=== PATIENT | female | born 1960 | race Caucasian/White ===

== ENCOUNTER 2021-12-22 12:05 | Emergency (ER) | payer MEDICARE, SELFPAY ==
[2021-12-22] VITALS (21 sets, daily range): BP systolic 129–158; BP diastolic 68–91; PULSE 68–87; RESP 16–52; TEMP 37; O2SAT 97–99
--- NOTE | 2021-12-22 12:04 | DI.CT.S_ITS ---
PROCEDURE: CT STROKE INDICATIONS: stroke symptoms TECHNIQUE: Noncontrast 4.5 mm thick angled axial sections acquired from the foramen magnum to the vertex, with coronal reformats. For radiation dose reduction, the following was used: automated exposure control, adjustment of mA and/or kV according to patient size. COMPARISON: None. FINDINGS: Image quality: Excellent. CSF spaces: Basal cisterns are patent. No extra-axial fluid collections. Ventricles are normal in size and shape. Brain: No midline shift. No intracranial masses or hemorrhage. Left greater than right frontal horn, periventricular white matter hypoattenuation is seen, which may reflect microvascular ischemia. The aforementioned hypoattenuating area extends into the left anterior limb of the internal capsule, likely reflecting basal ganglia remote infarct. Skull and face: Calvarium and visualized facial bones are intact, without suspicious lesions. Sinuses: Visualized sinuses and mastoids are well aerated. IMPRESSION: No acute intracranial hemorrhage. Consider magnetic resonance imaging for further evaluation. Findings were discussed with the ordering physician at the time of dictation. This study fulfills neurological imaging criteria for inclusion or exclusion of acute stroke therapies based on available published neurological imaging guidelines. Dictated by: Jass Dillon M.D. on 12/22/2021 at 12:21 Approved by: Jass Dillon M.D. on 12/22/2021 at 12:28
--- NOTE | 2021-12-22 12:04 | DI.CT.S_ITS ---
PROCEDURE: CT ANGIO HEAD AND NECK INDICATIONS: stroke symptoms TECHNIQUE: After the administration of intravenous contrast, 1 mm thick sections acquired from the aortic arch through the [place] of [place]. Post-contrast 4.5 mm thick sections then re-acquired from the foramen magnum to the vertex. 3-dimensional nfssvre-hszlylwey-zgrxcmnifl (MIP) and/or volume rendering reformats were acquired of the central intracranial vasculature and neck separately. For radiation dose reduction, the following was used: automated exposure control, adjustment of mA and/or kV according to patient size. COMPARISON: None. FINDINGS: Image quality: Excellent. BRAIN: CSF spaces: Ventricles are normal in size and shape. Basal cisterns are patent. No extra-axial fluid collections. Brain: No midline shift. No intracranial bleeds or masses. Storm-white matter interface appears intact. Skull and face: Calvarium and facial bones appear intact, without suspicious lesions. Orbits appear normal. Sinuses: Sinuses and mastoids are clear. HEAD CT ANGIOGRAPHY: Anterior circulation: Intracranial internal carotid arteries are normal in size and flow. The flow within the paired anterior cerebral arteries is normal and symmetric. The flow within the middle cerebral arteries is normal and symmetric. The anterior communicating artery is seen. Bulbous appearance in the right aspect of the A-comm (2-117; 12-18), measuring 1.4 mm. Posterior circulation: Visualized portions of the vertebral arteries demonstrate normal caliber, and join to form a normal appearing basilar artery. Flow within the posterior cerebral arteries is normal and symmetric. No aneurysms are seen. NECK CT ANGIOGRAPHY: Carotid system: The great vessels demonstrate a conventional anatomy as they arise from the aortic arch. The origins of the common carotid arteries appear patent. The common carotid arteries demonstrate normal caliber and courses. The bifurcation regions are both widely patent. The internal carotid arteries demonstrate normal calibers and courses. Posterior circulation: The origins of the vertebral arteries both appear widely patent. The more superior extracranial portions of both vertebral arteries also demonstrate normal courses and calibers. They join to form a normal appearing basilar artery. Soft tissues: Visualized neck soft tissues demonstrate no suspicious abnormalities. 5.9 mm ground-glass nodule in the posterior aspect of the right upper lobe. Bones: No suspicious bony lesions. Anterior cervical fixation hardware is seen. Visualized cervical spine appears normally aligned. IMPRESSION: 1. Bulbous appearance in the right aspect of the A-comm as detailed above, which may reflect a small aneurysm or fenestration. 2. 5.9 mm ground-glass nodule in the posterior aspect of the right upper lobe. Consider dedicated CT imaging. Any quantitative measurements of stenosis were performed using NASCET criteria. Dictated by: Jass Dillon M.D. on 12/22/2021 at 12:29 Approved by: Jass Dillon M.D. on 12/22/2021 at 12:47
--- NOTE | 2021-12-22 12:08 | ED.NEUROSD ---
HPI - Neuro Symptoms/Deficit General Chief Complaint: Neuro Symptoms/Deficit Stated Complaint: Dizzy, Foggy Time Seen by Provider: 12/22/21 12:10 History of Present Illness HPI Narrative: 61-year-old female former smoker with history of a TIA about 7 years ago presents by EMS for multiple neurologic symptoms that started probably at 10:55 a.m. this morning. Patient complains of facial numbness and weakness and cannot use her left arm or leg. She denies any fall or trauma and does not take blood thinners. She is activated as a code stroke and taken directly to CT scan for CT and CTA and call placed to tele stroke. Patient is never had an intracranial hemorrhage, denies any recent procedures or surgeries nor any history of bleeding complications, dark stools, bloody urine or other. Review of Systems Review of Systems Narrative: GENERAL: Denies chills, fatigue, malaise, fever, sweats. HEENT: Denies sinus pain, ear pain, sore throat, difficulty swallowing, dizziness. RESPIRATORY: Denies dyspnea, cough, wheezing, hemoptysis, sputum. CARDIOVASCULAR: Denies chest pain, palpitations, orthopnea, edema, GASTROINTESTINAL: Denies nausea, vomiting, abdominal pain, diarrhea, constipation, melena. : Denies dysuria, frequency, incontinence, hematuria, urinary retention. MUSCULOSKELETAL: denies weakness, joint pain, or bony pain SKIN: Denies rash, skin lesions, or other NEUROLOGIC: See HPI PSYCHIATRIC: No concerning psychosocial issues. 12 point review of systems is negative except for those stated above Exam Narrative Exam Narrative: GENERAL: [61] year old patient appears stated age. Well-developed patient, in mild distress. HEAD: Atraumatic. Normocephalic. EYES: Pupils equal round and reactive. Extraocular motions intact. No scleral icterus. No injection or drainage. ENT: Nose without bleeding, purulent drainage. Throat without erythema, tonsillar hypertrophy or exudate. Airway patent. NECK: Trachea midline. Non tender CARDIOVASCULAR: Regular rate and rhythm without murmurs, gallops, or rubs. RESPIRATORY: Clear to auscultation. Breath sounds equal bilaterally. No wheezes, rales, or rhonchi. GASTROINTESTINAL: Abdomen soft, non-tender, nondistended. EXTREMITIES: No edema or joint tenderness. BACK: Nontender without deformity or crepitance. No flank tenderness. NEURO: AOx3. See NIH below SKIN: No rash or erythema of visible areas Initial Vital Signs Initial Vital Signs: Vital Signs Temperature 98.6 F 12/22/21 12:12 Pulse Rate 68 12/22/21 12:12 Respiratory Rate 16 12/22/21 12:12 Blood Pressure 158/81 H 12/22/21 12:12 Pulse Oximetry 97 12/22/21 12:12 Scores NIH Stroke Scale Level of Conciousness: Alert, keenly responsive Ask month/age: Answers both questions correctly. Open/close eyes, close hand: Performs both tasks correctly Best gaze horizontal: Normal Visual cochran: No visual loss Facial palsy: Partial paralysis, total or near total paralysis of lower face Left arm drift: Drifts down, not to bed Right arm drift: No drift for full 10 sec Left leg drift: Some effort against gravity, cannot maintain, drifts down to bed Right leg drift: No drift for full 5 sec Limb ataxia: Absent Sensory on face/arms/legs: Mild to moderate sensory loss, can tell touch Best language: No aphasia, normal Dysarthria: Mild to mod,some slurring Extinction or inattention: Visual, tactile, auditory, spacial or personal inattention to stimuli Total NIH Stroke scale score: 8 Course Course Course Narrative: tPA (Tissue Plasminogen Activator) Dosing for Stroke Calculator from [employer] on 12/22/2021 All calculations should be rechecked by clinician prior to use RESULT SUMMARY: 5.3 mg Bolus dose, given IV over 1 min 47.9 mg Infusion, given IV over 60 mins 46.8 mg Waste, to be discarded INPUTS: Weight ?> 130 lbs tPA Contraindications for Ischemic Stroke from [employer] on 12/22/2021 All calculations should be rechecked by clinician prior to use RESULT SUMMARY: Patient does NOT meet inclusion criteria for tPA. INPUTS: Age >=8 ?> 0 = No Clinical diagnosis of ischemic stroke causing neurological deficit ?> 0 = No Time of symptom onset ?> 0 = No Intracranial hemorrhage on CT ?> 0 = No Clinical presentation suggests subarachnoid hemorrhage ?> 0 = No Neurosurgery, head trauma, or stroke in past 3 months ?> 0 = No Uncontrolled hypertension (>185 mmHg SBP or >110 mmHg DBP) ?> 0 = No History of intracranial hemorrhage ?> 0 = No Known intracranial arteriovenous malformation, neoplasm, or aneurysm ?> 0 = No Active internal bleeding ?> 0 = No Suspected/confirmed endocarditis ?> 0 = No Known bleeding diathesis ?> 0 = No Abnormal blood glucose ( ?> 0 = No Only minor or rapidly improving stroke symptoms ?> 0 = No Major surgery or serious non-head trauma in the previous 14 days ?> 0 = No History of gastrointestinal or urinary tract hemorrhage within 21 days ?> 0 = No Seizure at stroke onset ?> 0 = No Recent arterial puncture at a noncompressible site ?> 0 = No Recent lumbar puncture ?> 0 = No Post myocardial infarction pericarditis ?> 0 = No ?> 0 = No Age >80 years ?> 0 = No History of prior stroke and diabetes ?> 0 = No Any active anticoagulant use (even with INR ?> 0 = No NIHSS >25 ?> 0 = No CT shows multilobar infarction (hypodensity >1/3 cerebral hemisphere) ?> 0 = No #187: Stroke & Stroke Rehabilitation: Thrombolytic Therapy [x] The patient, who arrived at the hospital within 2 hours of time last known well, was diagnosed with subacute or acute ischemic stroke. IV t-PA was initiated within 3 hours of time last known well. [SATISFIES MIPS PERFORMANCE] [] The patient was diagnosed with subacute or acute ischemic stroke. IV t-PA was not initiated within 3 hours of last known well due to [select]: [MIPS PERFORMANCE EXCEPTION/EXCLUSION] [] Patient arrived more than 2 hours after last known well time, or the time last known well is unknown [] Patient has a medical contra-indication or reason for not administering [] (ex. neurologist does not believe t-PA is appropriate, active internal bleeding, serious head trauma, acute current or history of intracranial hemorrhage, uncontrollable hypertension, seizure at onset of stroke, CVA in last 3 months, Intracranial or intraspinal surgery in last 3 months, bleeding disorder, thrombocytopenia < 100,000, early radiographic ischemic changes on head CT, INR > 1.7, intracranial neoplasm, AVM, or aneurysm, patient in stroke trial, patient admitted for elective carotid intervention) []Patient or family declined IV t-PA [] The patient, who arrived at the hospital within 2 hours of time last known well, was diagnosed with subacute or acute ischemic stroke. IV t-PA was not initiated within 3 hours of time last known well. [DOES NOT SATISFY MIPS PERFORMANCE] Additional Information: tPA BOLUS 1243, infusion 1244 Tammi (Friend) [phone] Asha (step daughter) [phone] Orders Ordered: ED Orders 12/22/21 12:00 Complete Blood Count AUTO DIFF Stat Comprehensive Metabolic Panel Stat Partial Thromboplastin Time Stat Prothrombin Time INR Stat Troponin & CK Cardiac Panel Stat 12/22/21 12:[address] angio head and neck Stat Urine Drug Screen, Rapid Stat 12/22/21 12:17 EKG-12 Lead Stat 12/22/21 12:27 COVID19 -Nasal RAPID/Pre-Proc Stat Sodium Chloride (Normal Saline 0.9%) 1,000 mls @ 150 mls/hr IV CONT GERRY Last Admin: 12/22/21 13:21 Dose: 47 mls/hr Documented by: ROBEL Discontinued Medications Alteplase, Recombinant (Activase) 5.3 mg in 5.3 mls @ 318 mls/hr 0.09 mg/kg (5.3 mg) IV NOW ONE Stop: 12/22/21 12:15 Last Infusion: 12/22/21 12:44 Dose: 0 mls/hr Documented by: Admin: 12/22/21 12:43 Dose: 318 mls/hr Documented by: ROBEL Alteplase, Recombinant (Activase) 47.9 mg in 47.9 mls @ 47.9 mls/hr 0.81 mg/kg (47.9 mg) IV NOW ONE Stop: 12/22/21 13:13 Last Admin: 12/22/21 12:44 Dose: 47.9 mls/hr Documented by: ROBEL Consultations Consultation #1: call to [facility], Dr. Mullen and I have reviewed the case and sure the opinion that there are no contraindications to the use of tPA and she would benefit from the use of tPA. Vital Signs Vital signs: Vital Signs - 8 hr 12/22/21 12:12 12/22/21 12:28 12/22/21 12:29 Temperature 98.6 F Pulse Rate 68 79 84 Respiratory Rate 16 52 H 37 H Blood Pressure 158/81 H Pulse Oximetry 97 98 98 12/22/21 12:30 12/22/21 12:35 12/22/21 12:40 Temperature Pulse Rate 87 85 85 Respiratory Rate 33 H 48 H 35 H Blood Pressure 140/83 143/75 H 147/74 H Pulse Oximetry 99 99 99 12/22/21 12:45 12/22/21 12:50 12/22/21 12:55 Temperature Pulse Rate 78 78 74 Respiratory Rate 38 H 37 H 44 H Blood Pressure 131/76 144/78 H 140/77 Pulse Oximetry 99 99 98 12/22/21 13:00 12/22/21 13:05 12/22/21 13:10 Temperature Pulse Rate 78 74 83 Respiratory Rate 47 H 40 H 33 H Blood Pressure 129/68 133/76 Pulse Oximetry 99 99 99 12/22/21 13:11 12/22/21 13:15 12/22/21 13:20 Temperature Pulse Rate 79 76 73 Respiratory Rate 34 H 49 H 40 H Blood Pressure 140/71 138/74 145/79 H Pulse Oximetry 98 98 98 MDM - Neuro Symptoms/Deficit Lab Data Result diagrams: 12/22/21 12:00 12/22/21 12:00 Labs: Lab Results 12/22/21 12/22/21 12/22/21 Range/Units 12:00 12:00 12:00 WBC 5.9 (4.5-11.0) X10^3/uL RBC 4.82 (4.0-5.2) X10^6/uL Hgb 14.8 (12.0-16.0) g/dL Hct 43.6 (36-46) % MCV 90.4 (80-100) fL MCH 30.6 (26-34) PG MCHC 33.8 (30-36) % RDW 14.1 (11.6-14.8) % Plt Count 212 (150-400) X10^3/uL Neut % (Auto) 69.7 (50-75) % Lymph % (Auto) 24.1 L (25-40) % [place] % (Auto) 4.8 (3-14) % Eos % (Auto) 0.8 L (2-4) % Baso % (Auto) 0.6 (0-2) % Neut # (Auto) 4100 (6425-1120) /uL Lymph # (Auto) 1400 (4928-9679) /uL [place] # (Auto) 300 (0-900) /uL Eos # (Auto) 0 (0-450) /uL Baso # (Auto) 0 (0-100) /uL PT 10.6 (10.1-12.7) SECONDS INR 1.0 (0.9-1.3) APTT 34 (26.4-36.2) SECONDS Sodium 143 (137-145) mmol/L Potassium 4.1 (3.4-5.1) mmol/L Chloride 106 (98-107) mmol/L Carbon Dioxide 28 (22-32) mmol/L BUN 14 (7-17) mg/dL Creatinine 0.61 (0.52-1.04) mg/dL Estimated GFR > 60 (>60) mL/min BUN/Creatinine Ratio 23.0 H (6-22) Glucose 119 H (80-110) mg/dL Calcium 9.8 (8.4-10.2) mg/dL Total Bilirubin 0.5 (0.2-1.3) mg/dL AST 35 (14-36) IU/L ALT 27 (<35) IU/L Alkaline Phosphatase 81 (38-126) U/L Total Creatine Kinase 64 (30-135) U/L CK-MB (CK-2) TNP CK-MB (CK-2) Rel Index TNP Troponin I < 0.012 (0.01-0.034) ng/mL Total Protein 8.9 H (6.3-8.2) g/dL Albumin 5.2 H (3.5-5.0) g/dL Globulin 3.7 (1.7-4.1) g/dL Albumin/Globulin Ratio 1.4 (1.0-2.8) Point of Care Testing Glucose POC [address] scan - head: Radiologist's Impression: [place] [address] CT Scan Report Signed Patient: Terri Patel MR#: [id number] : 1960 Acct:[id number] Age/Sex: 61 / F Date of Service: 12/22/21 Loc: ED Accession Number: [id number] ?? Procedure: CT Stroke Ordering Provider: Misael Andre D.O. PROCEDURE:? CT STROKE ? INDICATIONS:? stroke symptoms ? TECHNIQUE:? Noncontrast 4.5 mm thick angled axial sections acquired from the foramen magnum to the vertex, with coronal reformats.? For radiation dose reduction, the following was used:? automated exposure control, adjustment of mA and/or kV according to patient size.? ? COMPARISON:? None. ? FINDINGS:? Image quality:? Excellent.? ? CSF spaces:? Basal cisterns are patent.? No extra-axial fluid collections.? Ventricles are normal in size and shape.? ? Brain:? No midline shift.? No intracranial masses or hemorrhage.? Left greater than right frontal horn, periventricular white matter hypoattenuation is seen, which may reflect microvascular ischemia.? The aforementioned hypoattenuating area extends into the left anterior limb of the internal capsule, likely reflecting basal ganglia remote infarct. ? Skull and face:? Calvarium and visualized facial bones are intact, without suspicious lesions.? ? Sinuses:? Visualized sinuses and mastoids are well aerated.? ? IMPRESSION:? No acute intracranial hemorrhage. ? Consider magnetic resonance imaging for further evaluation. ? Findings were discussed with the ordering physician at the time of dictation. ? This study fulfills neurological imaging criteria for inclusion or exclusion of acute stroke therapies based on available published neurological imaging guidelines.? ? ? Dictated by: Jass Dillon M.D. on 12/22/2021 at 12:21 ? ? Approved by: Jass Dillon M.D. on 12/22/2021 at 12:28 ? MDM Narrative Medical decision making narrative: For patient to quite well after tPA, no abnormal complaints, headache, vomiting, abdominal pain. Vital signs stable. [facility] ambulance en route. NIHSS down to 3 after treatments above. Patient is aware of and in agreement with her diagnosis and plan Critical Care Time Critical Care Time Critical Care Time: Yes Total Critical Care Time: 30 Attestation: The high probability of a clinically significant, sudden or life threatening deterioration of the [Neuro] system(s) required my full and direct attention, intervention and personal management. The aggregate critical care time was [30] minutes. This time is in addition to time spent performing reported procedures but includes the following: [x] Data Review and interpretation [x] Patient assessment and monitoring of vital signs [x] Documentation [x] Medication orders and management Discharge Plan Departure Patient Disposition: [facility] Clinical Impression: Cerebrovascular accident Referrals: Miscellaneous,DoctorMD [Non-Staff] -
[2021-12-22 12:15] LABS: Add Manual Diff / Slide Review NO; Basophils Absolute Auto 0 /uL (0-100); Basophils Percent Auto 0.6 % (0-2); Eosinophils Absolute Auto 0 /uL (0-450); Eosinophils Percent Auto 0.8 % (2-4); Hematocrit 43.6 % (36-46); Hemoglobin 14.8 g/dL (12.0-16.0); Lymphocytes Absolute Auto 1400 /uL (1100-4500); Lymphocytes Percent Auto 24.1 % (25-40); Mean Corpuscular HGB Conc 33.8 % (30-36); Mean Corpuscular Hemoglobin 30.6 PG (26-34); Mean Corpuscular Volume 90.4 fL (80-100); Monocytes Absolute Auto 300 /uL (0-900); Monocytes Percent Auto 4.8 % (3-14); Neutrophils Absolute Auto 4100 /uL (1500-7000); Neutrophils Percent Auto 69.7 % (50-75); Platelet Count 212 X10^3/uL (150-400); Red Blood Cell Count 4.82 X10^6/uL (4.0-5.2); Red Cell Distribution Width 14.1 % (11.6-14.8); White Blood Cell Count 5.9 X10^3/uL (4.5-11.0)
[2021-12-22 12:20] LABS: Prothrombin Time 10.6 SECONDS (10.1-12.7)
[2021-12-22 12:23] LABS: PTT Partial Thromboplastin Tim 34 SECONDS (26.4-36.2)
[2021-12-22 12:24] LABS: Alanine Aminotransferase 27 IU/L (<35); Albumin 5.2 g/dL (3.5-5.0); Albumin Globulin Ratio 1.4 (1.0-2.8); Alkaline Phosphatase 81 U/L (38-126); Aspartate Aminotransferase 35 IU/L (14-36); Bilirubin Total 0.5 mg/dL (0.2-1.3); Blood Urea Nitrogen 14 mg/dL (7-17); Calcium 9.8 mg/dL (8.4-10.2); Carbon Dioxide 28 mmol/L (22-32); Chloride 106 mmol/L (98-107); Creatine Kinase 64 U/L (30-135); Estimated Glomerular Filt Rate > 60 mL/min (>60); Globulin 3.7 g/dL (1.7-4.1); Glucose 119 mg/dL (80-110); HEMOLYSIS 16 (0-50); Potassium 4.1 mmol/L (3.4-5.1); Sodium 143 mmol/L (137-145); Total Protein 8.9 g/dL (6.3-8.2)
[2021-12-22 12:36] LABS: Troponin I < 0.012 ng/mL (0.01-0.034)
[2021-12-22] MEDS: ALTEPLASE 318 MG IV (12:43)
[2021-12-22] MEDS: ALTEPLASE IV (12:44)
[2021-12-22] MEDS: SODIUM CHLORIDE 0.9% 1,000 ML 47 ML IV (13:21)
[2021-12-22 13:42] LABS: COVID19 -Nasal RAPID Negative (Negative)
== END 2021-12-22 13:45 | disposition short-term general hospital (02) ==
PROVIDERS: Emergency Provider Emergency Medicine; PCP Family Medicine
DX: I63.9 Cerebral infarction, unspecified (principal); Z20.822 Contact with and (suspected) exposure to COVID-19
CPT/HCPCS: 36415; 70450; 70496; 70498; 80053; 82550; 82962; 84484; 85025; 85610; 85730; 87635; 93005; 96365; 99285; 99291; 99292; C9803; J2997